=== PATIENT | female | born 1995 ===

== ENCOUNTER 2020-03-15 01:06 | Inpatient (IN) | payer OTHER ==
[2020-03-15 01:48] VITALS: BMI 31.1
[2020-03-15] MEDS ORDERED: Butorphanol Tartrate 1 MG/ML VIAL ONE (02:43)
[2020-03-15] MEDS ORDERED: Butorphanol Tartrate 1 MG/ML VIAL SLOW IVP PRN (02:44)
[2020-03-15] MEDS ORDERED: hydrALAZINE 20 MG/ML VIAL SLOW IVP PRN ×2 (02:44→12:42)
--- NOTE | 2020-03-15 03:15 | PDOC.FPROB ---
FMR OB H&P: HPI - History of Present Illness Chief Complaint: Ctx Indentification: 24 yo F @ 39.1 weeks History of Present Illness: Pt comes in complaining of ctx. States started at 12:30 and were 10 minutes apart. The pain has worsened and have now became 5 min apart. Pt denies LOF. Reports FM. Denies any vaginal bleeding, discharge or irritation. Denies any fever, chills, or cough. Denies any swelling. Denies any urinary sx's. Primary Care Physician: Sukumar FMR OB H&P: Current - Care : 7 Para: 4 Gestational age: 39.1 weeks Due date: 03/21/2020 - OB Labs Blood type: unknown RH: unknown Antibody Screen: unknown HIV: unknown RPR: unknown HepBsAg: unknown Quad screen: unknown Gonorrhea: unknown Chlamydia: unknown GBS: positive FMR OB H&P: History - Past Medical History PMH: None - OB History OB History: 4 prior vaginal deliveries - HOMEOPATHIC DOCTOR History HOMEOPATHIC DOCTOR History: Denies any hx of abnormal pap smears. Has hx of herpes. On valtrex. No recent outbreak. - Surgical History Sx History: None - Social History Social History: Denies any smoking, drinking or illicit drug use - Family History Family History: Noncontributory FMR OB H&P: Medications - Current Home Medications: Medication Instructions Recorded Confirmed Type Pnv No.103/Folic/Om3s/Fish Oil 1 tab PO DAILY 03/15/20 03/15/20 History [ Gummies] valACYclovir [Valtrex] 1 tab PO DAILY 03/15/20 03/15/20 History Allergies/Adverse Reactions: Allergies Allergy/AdvReac Type Severity Reaction Status Date / Time No Known Allergies Allergy Verified 03/15/20 01:41 FMR OB H&P: ROS - Review of Systems General: denies: fever/chills, weight/appetite/sleep changes Eyes: denies: vision changes, double vision ENT: denies: nasal congestion Respiratory: denies: cough, congestion, shortness of breath Gastrointestinal: denies: abdominal pain, indigestion, bloating, cramping, nausea, vomiting, diarrhea, constipation Genitourinary (Female): reports: contractions. denies: incontinence, dysuria, hematuria, polyuria, vaginal bleeding Musculoskeletal: denies: pain, stiffness, redness, swelling Neurologic: denies: numbness, weakness Integumentary: denies: itching, rash Psychological: denies: depression, anxiety FMR OB H&P: Vital Signs - Maternal Vital signs: BP 128/79, O2 100% on RA, 98.4, RR 20, Pulse 100 - Heart Tones Baseline: 140 Variability: moderate Acceleration: present Deceleration: absent Category: category 1 [place] contractions every: 6-8 minutes FMR OB H&P: Physical Exam - Physical Exam General: awake, alert and oriented Deviation from normal: Pt in some pain due to contractions HEENT: normocephalic and atraumatic, PERRLA, grossly normal vision, grossly normal hearing Neck: supple, FROM, trachea midline Chest: non-tender to palpation Heart: RRR, normal S1/S2, no murmurs/rubs/gallops General: CTAB, no respiratory distress, good air movement, no rales/rhonchi, no wheezing, no retractions Abdomen: soft, gravid, non-tender, bowel sound present, no masses, no hernias Musculoskeletal: normal gait and station, FROM in all four extremities Neurological: sensation to pain,touch and proprioception grossly normal Skin: no rash, good tugor Lymphatic: no unusual bruising or bleeding - Pelvic Exam SVE: /-2 FMR OB H&P: A/P - Problem List (1) Current Visit: Yes Status: Acute Qualifiers: Weeks of gestation: 39 weeks Qualified Code(s): Z3A.39 - 39 weeks gestation of (2) Positive GBS test Current Visit: Yes Status: Acute Code(s): B95.1 - STREPTOCOCCUS, GROUP B, CAUSING DISEASES CLASSD ELSWHR (3) History of herpes simplex infection Current Visit: Yes Status: Acute Code(s): Z86.19 - PERSONAL HISTORY OF OTHER INFECTIOUS AND PARASITIC DISEASES Disposition: 24 yo F presents in Latent Labor w/ Ctx -Will monitor for a few hours and reasses pt for cervical change -Pt having painful ctx. Will order dose of stadol GBS (+) -Will start penicillin ppx if pt labor progresses Hx of HSV infection -no recent outbreak or lesions noted -Continue valtrex Discussion: Date/Time: 03/15/20311 This H&P was discussed with [] and [] who agree with the above documentation and plan. Addendum - Attending - Attending Attestation Date/Time: 03/15/20 [id number] I personally evaluated the patient and discussed the management with Dr. Capellan. Dr. Patino notified of admit. I agree with the History, Examination, Assessment and Plan documented above.
[2020-03-15] MEDS ORDERED: Ondansetron PF 4 MG/2 ML Vial IVP PRN ×3 (03:38→12:42)
[2020-03-15] MEDS ORDERED: Promethazine HCl 25 MG/ML VIAL IM PRN ×2 (03:38→05:12)
[2020-03-15] MEDS ORDERED: Acetaminophen 500 MG TAB PO PRN (03:38)
[2020-03-15] MEDS ORDERED: Carboprost 250 MCG/ML AMP IM PRN (03:40)
[2020-03-15] MEDS ORDERED: Methylergonovine 0.2 MG/ML VIAL IM PRN (03:40)
[2020-03-15] MEDS ORDERED: Lidocaine 1% (PF) 30 ML VIAL SC PRN (03:40)
[2020-03-15] MEDS ORDERED: NS / Oxytocin 40 units/1000ml 1,000 ML IV PRN (03:40)
[2020-03-15] MEDS ORDERED: Misoprostol 200 MCG TAB PR PRN (03:40)
[2020-03-15] MEDS ORDERED: Ibuprofen 800 MG TAB PO PRN (03:40)
[2020-03-15] MEDS ORDERED: Fentanyl 4 mcg/Bup 0.1% Cadd 100 ML ONE (03:43)
[2020-03-15] MEDS ORDERED: Penicillin G Potassium 5 MILL.UNITS in Sodium Chloride 0.9% 100 ML IVPB SCH (03:45)
[2020-03-15] MEDS: Lactated Ringer's 1,000 ML IV SCH ×2 (03:45→04:48)
[2020-03-15 03:59] LABS: Hemoglobin 11.4 g/dL (12.0-16.0); Mean Corpuscular HGB CONC 32.7 g/dL (32.0-36.0); Mean Corpuscular Hemoglobin 25.4 pg (27.0-31.0); Mean Corpuscular Volume 77.8 fL (78.0-98.0); Mean Platelet Volume 9.4 fL (7.4-10.4); Platelet Count 174 thou/uL (130-400); RBC Distribution Width 15.2 % (11.5-14.5); Red Blood Cell (RBC) Count 4.48 mill/uL (4.20-5.40); White Blood Cell (WBC) Count 11.5 thou/uL (4.8-10.8)
[2020-03-15 04:38] LABS: HBSAg Index 0.27 S/CO (0-0.99); Hep B Surf Ag Non-Reactive S/CO (NonReactive)
[2020-03-15 04:56] LABS: Syphilis Antibody Nonreactive (Nonreactive); Syphilis Antibody Index 0.04 S/CO (<1.00 Non-Reactive)
[2020-03-15] MEDS ORDERED: Naloxone HCl 0.4 mg/ml Vial IVP PRN ×2 (05:12)
[2020-03-15] MEDS ORDERED: Acetaminophen 325 MG TAB PO PRN (05:12)
[2020-03-15] MEDS ORDERED: Lactated Ringer's 500 ML IV PRN (05:12)
[2020-03-15] MEDS ORDERED: diphenhydrAMINE 50 MG/ML VIAL IVP PRN (05:12)
[2020-03-15] MEDS ORDERED: EPHEDRINE 25 MG/5 ML SYRINGE SLOW IVP PRN (05:12)
[2020-03-15] MEDS ORDERED: Communication Order-Pharmacy FS SCH (05:15)
[2020-03-15] MEDS ORDERED: Fentanyl 4 mcg/Bupivacaine 0.1% Cassette 100 ML EPIDURAL SCH (05:15)
[2020-03-15] MEDS: Penicillin G 2.5 MILL.units 2.5 MILL.UNITS in Premix Bag 1 BAG IVPB SCH ×2 (08:08→16:32)
--- NOTE | 2020-03-15 09:02 | PDOC.FM ---
- Objective Vital Signs & Weight: Weight Weight 74.843 kg Result Diagrams: 03/15/20 03:50
--- NOTE | 2020-03-15 09:04 | PDOC.LDPN ---
Labor & Delivery Progress Note - Subjective Subjective: comfortable, no concerns - Objective General: NAD, resting Dilation: 6 Effacement: 90% Station: -1 AROM: bloody fluid Plan: continue plan of care -: AROM patient-clear/bloody Cephalic on bedside sono /-1
[2020-03-15] MEDS ORDERED: NS w/ Oxytocin 10 units 500 ML ONE (09:37)
[2020-03-15] MEDS ORDERED: Bupivacaine/Epinephrine 0.25% 30 ML VIAL ONE (11:03)
[2020-03-15 11:59] LABS: Actual Bicarbonate (HCO3v) 24 mEq/L (22-28); Base Excess -3.7 mEq/L (-2.0 to +3.0); pH (Cord, venous) 7.26 (7.32-7.43)
[2020-03-15 12:00] LABS: Actual Bicarbonate (HCO3a) 21.2 mEq/L (22-28); Base Excess (BEa) -5.9 mEq/L (-2.0 to +3.0)
[2020-03-15] MEDS: NS / Oxytocin 40 units/1000ml 1,000 ML IV SCH ×2 (12:00→12:56)
[2020-03-15] MEDS ORDERED: Lanolin Ointment 7 GM TUBE TOP PRN (12:42)
[2020-03-15] MEDS ORDERED: Milk Of Magnesia 30 ML UDCUP PO PRN (12:42)
[2020-03-15] MEDS ORDERED: Bisacodyl 10 MG SUPP PR PRN (12:42)
[2020-03-15] MEDS ORDERED: diphenhydrAMINE 25 MG CAP PO PRN (12:42)
[2020-03-15] MEDS ORDERED: HYDROcodone/Acetaminophen 5/325 mg Tablet PO PRN ×2 (12:42)
[2020-03-15] MEDS ORDERED: Azithromycin 500 MG VIAL ONE (12:45)
[2020-03-15] MEDS ORDERED: Azithromycin 500 MG in Sodium Chloride 0.9% 250 ML 250 ML IVPB SCH (13:00)
[2020-03-15] MEDS: Ibuprofen 800 MG TAB PO SCH ×2 (14:16→23:13)
[2020-03-15] MEDS: Ferrous Sulfate 325 MG TAB PO SCH (16:33)
[2020-03-15] MEDS: cefOXitin Sodium/Dextrose,Iso 1 GM in Premix Bag 1 BAG IVPB SCH ×2 (17:59→23:13)
[2020-03-15] MEDS ORDERED: CEFOXITIN IVPB SCH (18:00)
[2020-03-15] MEDS ORDERED: cefOXitin Sodium/Dextrose,Iso 1 GM in Premix Bag 1 BAG IVPB SCH (18:00)
[2020-03-15] MEDS: Docusate Calcium (SURFAK) 240 MG CAP PO SCH (23:13)
[2020-03-16] MEDS: Ibuprofen 800 MG TAB PO SCH ×2 (05:15→14:26)
[2020-03-16] MEDS: cefOXitin Sodium/Dextrose,Iso 1 GM in Premix Bag 1 BAG IVPB SCH ×2 (05:15→13:20)
[2020-03-16 06:15] LABS: Hemoglobin 9.4 g/dL (12.0-16.0); Mean Corpuscular HGB CONC 31.9 g/dL (32.0-36.0); Mean Corpuscular Hemoglobin 25.5 pg (27.0-31.0); Mean Corpuscular Volume 79.9 fL (78.0-98.0); Mean Platelet Volume 9.1 fL (7.4-10.4); Platelet Count 120 thou/uL (130-400); RBC Distribution Width 15.4 % (11.5-14.5); Red Blood Cell (RBC) Count 3.67 mill/uL (4.20-5.40); White Blood Cell (WBC) Count 11.1 thou/uL (4.8-10.8)
[2020-03-16] MEDS: Ferrous Sulfate 325 MG TAB PO SCH ×2 (08:09→09:32)
[2020-03-16] MEDS ORDERED: Prenatal Vitamin 1 TAB PO SCH (09:00)
[2020-03-16] MEDS: Docusate Calcium (SURFAK) 240 MG CAP PO SCH (09:34)
[2020-03-16] MEDS ORDERED: Adacel (T-DAP) 0.5 ML SYRINGE IM ONE (12:42)
[2020-03-16] MEDS ORDERED: Azithromycin 500 MG in Sodium Chloride 0.9% 250 ML 250 ML IVPB SCH (13:00)
[2020-03-16 17:15] VITALS: BP 123/81; TEMP 98.6
== END 2020-03-16 19:15 | disposition home or self-care (01) | DRG 806 ==
LOC: L&D/OP 01:06 → L&D 03:38 → 3SW 14:54
PROVIDERS: ADMIT Family Medicine; ATTEND Family Medicine
PROC: 10D07Z6 Extraction of Products of Conception, Vacuum, Via Natural or Artificial Opening (ICD-10-PCS; principal; 2020-03-15)
DX: O76 Abnormality in fetal heart rate and rhythm complicating labor and delivery (principal); O98.52 Other viral diseases complicating childbirth; Z37.0 Single live birth; O99.824 Streptococcus B carrier state complicating childbirth; B00.1 Herpesviral vesicular dermatitis; Z3A.39 39 weeks gestation of pregnancy
CPT/HCPCS: 36415; 51702; 82805; 85027; 86780; 86850; 86900; 86901; 87340; 88307; 99285; J0456; J0595; J0694; J2405; J2540; J2590; J3490; J7050